=== PATIENT | male | born 1980 | race Caucasian/White ===

== ENCOUNTER 2016-07-10 12:42 | Emergency (ER) | payer OTHER, BC ==
[2016-07-10] MEDS: Sodium Chloride 0.9% 1,000 ML PRIMARY IV ONE ×2 (12:42→14:20)
[2016-07-10] MEDS ORDERED: BACITRACIN 0.9 GM PACKET OINT TOPICAL ONE (12:51)
[2016-07-10] MEDS ORDERED: Amoxicill/Clav 875/125mg Tab 1 TAB TAB PO SCH (13:00)
--- NOTE | 2016-07-10 13:03 | PDOC ---
Animal Bite HPI - General Chief Complaint: Animal Bite Stated Complaint: puncture wounds to thigh Date Seen by Provider: 07/10/16 Time Seen by Provider: 12:58 - History of Present Illness Initial Comments: Patient is a very nice 36-year-old [employer] who apparently was at a traffic stop when he was attacked by the suspect's dog. Apparently the dog had left after the initial tach but then came back as if to attack again and he was forced tissue TM normal. The animal on his first attack however did have a substantial enough bite that he punctured multiple spots of the anterior thigh and around the knee. Some of these lesions are still actively bleeding. There is some bruising and erythema surrounding these bites and scrapes. Have you received a tetanus shot in the past 10 years?: Yes - Patient Home Medications Home Medications: Home Medications Loratadine/Pseudoephedrine Sul [Claritin-D 24 Hour Tablet] 1 tab PO DAILY tab 03/29/15 Mometasone Furoate [Nasonex] 2 spr SCOTT DAILY #1 spr 07/22/15 Zolpidem Tartrate [Ambien] 1 tab PO DAILY #30 tab 11/22/15 Amoxicillin/Potassium Clav [Augmentin 875-125 Tablet] 1 each PO BID #14 tablet 07/10/16 - Patient Allergies Allergies/Adverse Reactions: Allergies Allergy/AdvReac Type Severity Reaction Status Date / Time SEASONAL Allergy Intermediate RUNNY Uncoded 12/26/13 02:01 NOSE/ CONGESTION Past Medical History - heen HEENT History: Denies History Cardiovascular History: Denies History Respiratory History: Denies History Gastrointestinal History: Denies History Genitourinary History: Denies History Endocrine History: Denies History Musculoskeletal History: Denies History Prosthesis or Implant: No Neurological History: Denies History Blood Disorders: Denies History Psychiatric History: Denies History Cancer History: Denies History History of MDRO: No Alcohol Use: Occasionally Substance Use Type: None Previous Surgical History: No Significant Family History: No pertinent family hx Past Medical History Reviewed: Reviewed - No Changes ROS - Limitations ROS Limitations: No Limitations Constitution: REPORTS: Denies Symptoms Cardiovascular: REPORTS: Denies Cardiac Symptoms Respiratory: REPORTS: Denies Resp Symptoms Neurological: REPORTS: Denies Neuro Symptoms Animal Bite Physical Exam - General Appearance General Appearance: REPORTS: Alert, Cooperative, No Acute Distress - HEENT HEENT: POSITIVE: Head Inspection Nml, Eyes Inspection Nml - Neck Neck: POSITIVE: Normal Inspection - Respiratory Respiratory: POSITIVE: No Respiratory Distress - Extremities Additional Extremities Details: On left lower extremity about midshaft of his thigh towards the lateral aspect he has a couple of puncture wounds with with substantial bleeding. He also has a couple bites just proximal to his knee as well. There is some obvious bruising and erythema around this. Animal Bite Progress - Patient's Progress MDM / ED Course: This patient tells me that he had a bit of a GI bug/illness this morning where he felt significantly nauseated has been tired and woozy through the day and unable to stay hydrated. This in combination with a significant animal bite and the fact that him and want him to take Augmentin which sure can be hard on his stomach I think, start him off with an IV Unasyn dose and have him start taking Augmentin a little later. Also give him a liter fluid and some Zofran for the nausea symptoms he has had. Patient Care Time - Estimated PCT Patient Care Time (In Minutes): 35 Vital Signs - VS Reviewed Vital Signs Reviewed: Yes Discharge Clinical Impression: Animal bite wound, Dog bite - wound Discharge Disposition: Discharged to Home Condition: Stable Prescriptions / Orders: Amoxicillin/Potassium Clav [Augmentin 875-125 Tablet] 1 each PO BID #14 tablet Patient Instructions Given at Discharge: Animal Bite (ED) Additional Instructions: Use [id number] anti-inflammatories and Tylenol for discomfort. Keep wounds clean and dry as well. Take Augmentin 875 one by mouth twice a day for 7 days. If your symptoms worsen do not hesitate to return or see her primary care provider for further evaluation. Follow Up With: NONE,NONE [Primary Care Provider] -
[2016-07-10] MEDS ORDERED: ONDANSETRON 4 MG/2 ML VIAL IVP ONE (13:04)
[2016-07-10] MEDS ORDERED: Ampicillin/Sulbactam Inj 3 GM in Sodium Chloride 0.9% 100 ML IV ONE (13:04)
[2016-07-10] MEDS ORDERED: DIPH,PERTUSS,TET(ADACEL) VAC/PF 0.5 ML (Tdap) IM ONE (13:18)
[2016-07-10 13:30] VITALS: RESP 16; TEMP 97
== END 2016-07-10 14:08 | disposition home or self-care (01) ==
LOC: ER 12:42
DX: S71.152A Open bite, left thigh, initial encounter (principal); S70.12XA Contusion of left thigh, initial encounter; W54.0XXA Bitten by dog, initial encounter; Y92.414 Local residential or business street as the place of occurrence of the external cause; Y99.0 Civilian activity done for income or pay
CPT/HCPCS: 90471; 96361; 96365; 96375; 99282; 99283; J0295; J2405; J7030; J7050